=== PATIENT | female | born 1995 | race Two or more races ===

== ENCOUNTER 2025-08-15 05:11 | Emergency (ER) | payer MEDICAID, SELFPAY ==
[2025-08-15 05:12] VITALS: BP 124/76; PULSE 76; RESP 16; TEMP 37.2; O2SAT 97; BMI 32.5
--- NOTE | 2025-08-15 05:38 | XR_ITS ---
Upright PA and lateral chest film 08/15/2025 at 600 am. Comparison study 10/31/2013 Indication: 2 days of cough with some chest pain and shortness of breath FINDINGS: Heart mediastinum appear radiographically normal. Both lungs and pleural space are clear normal. No abnormalities are seen in the bony thorax. Surgical clips are seen in the gallbladder fossa. IMPRESSION: Normal chest for
--- NOTE | 2025-08-15 05:38 | PD.EDRME ---
Rapid Medical Screening Exam [facility] Arrival date/time: 08/15/25 05:11 30F with no significant PMH presents to ED with 2 days of cough and some CP/SOB. Patient denies sore throat. Chief Complaint: Flu Like Symptoms Vital signs: Vital Signs Temperature 98.9 F 08/15/25 05:12 Pulse Rate 76 08/15/25 05:12 Respiratory Rate 16 08/15/25 05:12 Blood Pressure 124/76 08/15/25 05:12 Pulse Oximetry (%) 97 08/15/25 05:12 Exam: Clear lungs and normal WOB. Mild oropharynx swelling. Clinical Impression: URI vs strep vs CAP vs allergies
--- NOTE | 2025-08-15 06:12 | EKG_ITS ---
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
--- NOTE | 2025-08-15 06:57 | EDNOTE_ITS ---
Upper Respiratory Inf. RME/HPI General Chief Complaint: Flu Like Symptoms Stated Complaint: COUGH, CHEST TIGHTNESS Time Seen by Provider: 08/15/25 06:11 Arrival date/time: 08/15/25 05:11 RME / HPI RME / HPI Narrative: 08/15/25 05:11 30F with no significant PMH presents to ED with 2 days of cough and some CP/SOB. Patient denies sore throat. Exam: Clear lungs and normal WOB. Mild oropharynx swelling. Impression: URI vs strep vs CAP vs allergies Related Data Home Medications ?Medication ?Instructions ?Recorded ?Confirmed vitamins-iron fumarate 27 1 tab PO QDAY 03/1003/24/20 mg iron-folic acid 0.8 mg tablet ( Vitamin) Previous Rx's ?Medication ?Instructions ?Recorded hydrocodone 5 mg-acetaminophen 325 1 tab PO Q6H PRN pa in #30 tabs 03/24/20 mg tablet (Ladora) acetaminophen-caffeine 500 mg-65 1 tab PO Q6H PRN pain #30 tabs 11/01/22 mg tablet (Excedrin Tension Headache) ibuprofen 800 mg tablet 800 mg PO TID PRN pain #30 t abs 11/01/22 albuterol 90 mcg-budesonide 80 2 inh inhalation QID WA N shortness 08/15/25 mcg/actuation HFA aerosol inhaler of breath #10.7 gram s benzonatate 200 mg capsule 200 mg PO TID PRN cough #14 caps 08/15/25 Allergies Allergy/AdvReac Type Severity Reaction Status Date / Time No Known Allergies Allergy Unverified 09/25/21 17:22 ED Exam Narrative Physical exam: constitutional: Patient alert and oriented. Well appearing. No acute distress. Not toxic appearing. Head: Normocephalic, atraumatic. Eyes: Periorbital regions bilaterally normal to inspection. Conjunctiva clear bilaterally. Sclera anicteric bilaterally. Pupils equal, round, reactive to light bilaterally. Extraocular movements intact bilaterally. Ears: External ears normal to inspection bilaterally. No mastoid tenderness bilaterally. EAC without edema or exudate bilaterally. TMs without erythema or bulging. Mouth/Throat: Positive mild cobblestoning of oropharynx. Mucous membranes moist. No stridor or muffled voice. Uvula midline. Rise and fall of soft palate normal. No tonsillar edema or exudate. No peritonsillar fullness. No trismus. Handling secretions without difficulty. Airway widely patent. Neck: Supple. Trachea midline. No JVD. No nuchal rigidity. No midline tenderness or step-offs. Normal range of motion. Respiratory: Normal effort. No accessory muscle use or respiratory distress. Lungs clear to auscultation bilaterally without rhonchi, wheezes, or crackles. Cardiovascular: RRR. Normal S1/S2. No murmurs or rubs. Radial pulses intact bilaterally. Abdomen: Soft. Non-distended. Non-tender throughout. No pulsatile mass. No guarding or rebound. Negative Westbrook?s sign. Negative McBurney?s point tenderness. Negative Rovsing?s. Back: No midline tenderness or step-offs. No CVA tenderness to palpation bilaterally. Upper Extremities: No gross deformities. Lower Extremities: No gross deformities. No edema or calf tenderness. Neuro: Speech normal. No gross motor or sensory deficits to upper or lower extremities bilaterally. GCS 15. CN II?XII grossly intact. Skin: Warm, dry, normal color. Psych: Normal affect. Cooperative. Normal insight. Course Course Course Narrative: MDM This patient has been diagnosed with a viral illness. A careful history and physical exam, and laboratory testing as appropriate, show no signs of meningitis, pneumonia, or other serious viral or bacterial infection. Chest x- ray negative. I considered antibiotics; however, given viral etiology, it is not indicated. Suspect upper respiratory infection versus acute bronchitis. Doubt occult pneumonia. The patient is told that viral illness is a presumptive diagnosis and if improvement is not occurring within several days or if symptoms change or worsen, a re-evaluation needs to be done with the PMD or in the ED to make sure a more serious, as yet undiagnosable, problem is not occurring. At the time of reassessment prior to discharge, the patient remains alert and oriented ?3 with GCS 15. Vitals are normal, pain is controlled, and the patient is tolerating oral intake without nausea or vomiting. The patient is agreeable to discharge and verbalizes understanding of the diagnosis, studies, treatment plan, medications (including side effects/precautions), and strict ER return precautions as discussed in the ED. All concerns were addressed, and the patient is comfortable with the plan. Quality Measures none Orders Category Date Time Status EKG (ED ONLY) *Do not use* NOW Care 08/15/25 06:12 Completed EKG (ED Only) Stat Exams 08/15/25 06:12 Draft XR chest 2V Stat Exams 08/15/25 05:38 Completed Strep A Rapid Stat Lab 08/15/25 06:43 Completed Vital Signs Vital signs: Vital Signs Temperature 98.9 F 08/15/25 05:12 Pulse Rate 76 08/15/25 05:12 Respiratory Rate 16 08/15/25 05:12 Blood Pressure 124/76 08/15/25 05:12 Pulse Oximetry (%) 97 08/15/25 05:12 PROCEDURES: EKG Interpretation #1: Date of EK08/15/25 Time of EK:37 Rate: 93 Interpretation: Interpreted by me EKG Impression: Normal sinus rhythm, Normal axis and Non-specific ST-T (abnormalities) Additional EKG comment: No MALLIKA or TWI Upper Respiratory Infection Patient data External records reviewed:: [facility] previous records Clinical information provided by:: patient Social determinants that could affect healthcare access:: none Patient has the following chronic illnesses:: As noted How is presenting disease/condition affected by chronic disease/condition?: no chronic disease Evaluation data The following diagnostics were reviewed and interpreted by me:: lab results, radiology exam(s) and other (specify) Lab and/or radiology exams considered but not ordered:: Additional Labs and radiology considered, but not ordered as they were not clinically indicated at this time. Interpretation Summary: As noted Medications / Prescriptions Medications or Prescriptions considered but not ordered:: I ordered medications based on the patient?s clinical needs and assessment, as documented in the chart. For medications not prescribed, they were not indicated for the patient's current condition, and I determined they were unnecessary at this time to avoid potential risks or complications. Medication administrations:: As noted Consultations Consultation(s) initiated? (list below): No Diagnosis Upper Respiratory Differential Diagnosis: upper respiratory infection, otitis media and sinusitis Most likely diagnosis given after review of the tests above:: Upper respiratory infection Admission Indicated Admission indicated?: not indicated Admission Request Was there a request for admission?: No Disposition Plan Disposition Plan: Discharge Discharge Attestation Discharge Attestation: The patient and all family members were given an opportunity to ask questions and understood the discharge instructions. Discharge instructions specifically effects, indications for sooner follow up or return to the emergency department, and the expected course of current diagnosis. Patient condition: Stable Discharge Plan Plan Patient Disposition: HOME (Self Care) Patient condition on transfer: Stable Prescriptions/Referrals Prescriptions/Med Rec: New benzonatate 200 mg capsule 200 mg PO TID PRN (Reason: cough) Qty: 14 0RF albuterol-budesonide 90-80 mcg/actuation HFA aerosol inhaler 2 inh inhalation QID PRN (Reason: shortness of breath) Qty: 10.7 0RF No Action hydrocodone-acetaminophen [Ladora] 5-325 mg tablet 1 tab PO Q6H MDD 4 PRN (Reason: pain) Qty: 30 0RF Vitamin 27 mg iron- 0.8 mg Tablet 1 tab PO QDAY Excedrin Tension Headache 500-65 mg tablet 1 tab PO Q6H PRN (Reason: pain) Qty: 30 0RF ibuprofen 800 mg tablet 800 mg PO TID PRN (Reason: pain) Qty: 30 0RF Referrals: Jevon Ruiz MD [Primary Care Provider, Family Practice] - In 1 week Problem List Clinical Impression: Upper respiratory infection Patient/Caregiver Discharge Instructions Education Materials: ED URI, Viral, No Abx (Adult) Additional Instructions: Follow up with your primary medical doctor within 24 hours. Return to the Emergency Room immediately for any new, worsening, continuing symptoms or any concerns at all. Return to the Emergency Room within 24 hours if you are unable to follow up with your primary medical doctor within 24 hours. Print Language: Mosotho Stand Alone Forms: Rebekah Award Info., Patient Portal Info Letter PA/CORNELIO Supervising Physician PA/[employer] Supervising Physician: Dr. Stone
[2025-08-15 07:59] LABS: Strep A Rapid Negative (Negative)
[2025-08-15 08:03] VITALS: BP 116/72; PULSE 94; RESP 16; TEMP 36.9; O2SAT 100
== END 2025-08-15 10:34 | disposition home or self-care (01) ==
PROVIDERS: Physician Assistant; Emergency Provider Physician Assistant; PCP Family Medicine
DX: J06.9 Acute upper respiratory infection, unspecified (principal); R07.89 Other chest pain
CPT/HCPCS: 71046; 87651; 93005; 99283